=== PATIENT | female | born 1980 | race Caucasian/White ===

== ENCOUNTER 2016-06-29 15:39 | Emergency (ER) | payer OTHER ==
[~2016-06-29] VITALS: Ht 167.6 cm; Wt 108.9 kg
[2016-06-29 16:08] VITALS: BP 139/96
--- NOTE | 2016-06-29 18:11 | NUR ---
Pt taken to bed 7.
--- NOTE | 2016-06-29 18:30 | NUR ---
35/F presents to the ED for evaluation of vaginal bleeding x2 days, starting on Monday. Pt states "I have had heavy periods since I had my kids 2 years ago." Patient also reports having dizziness episodes and near syncopal episodes. Patient states "When she was drawing my blood I felt like I was going to pass out." Patient states LMP was Monday06/27/16. Pt states she has had heavy bleeding but states at this time "It stopped while I was outside." Pt states she got a referral for an OBGYN and states she has an appointment on 08/04/16. Pt states "My duty officer told me to come get checked out. They are worried about me." Pt states she gets drug tested weekly as part of her probation.
[2016-06-29] MEDS ORDERED: IBUPROFEN 800 MG TAB PO ONE (18:40)
--- NOTE | 2016-06-29 19:06 | NUR ---
PT LYING IN BED COMFORTABLY WITH SON AT BEDSIDE. PAIN SCALE REDUCED TO 5/10 AT THIS TIME AFTER IBUPROFEN ADMINISTRATION.NO ACUTE DISTRESS NOTED AT THIS TIME. SAFETY PRECAUTION ISTITUTED. NEEDS ATTENDED.WILL CONTINUE TO MONITOR PT.
--- NOTE | 2016-06-29 19:13 | NUR ---
TRANSFER OF CARE/REPORT GIVEN TO RN BRODY
--- NOTE | 2016-06-29 19:14 | NUR ---
RECEIVED REPORT FROM DAY NURSE YENNI THIBODEAUX AND NABEEL BENITEZ FOR TRANSFER OF CARE.
--- NOTE | 2016-06-29 19:30 | NUR ---
DR NEVAREZ AT BEDSIDE EVALUATING PATIENT.
[2016-06-29] MEDS ORDERED: KETOROLAC 60 MG/2 ML VIAL IM ONE (19:40)
[2016-06-29 20:18] VITALS: BP 101/74
--- NOTE | 2016-06-29 20:18 | NUR ---
Patient discharged with v/s stable. Written and verbal after care instructions given and explained. Patient alert, oriented and verbalized understanding of instructions. Ambulatory with steady gait. All questions addressed prior to discharge. ID band removed. Patient advised to follow up with PMD. Rx of TRAMADOL HYDROCHLORIDE given. Patient educated on indication of medication including possible reaction and side effects. Opportunity to ask questions provided and answered.
== END 2016-06-29 20:18 | disposition home or self-care (01) ==
LOC: MED 15:39
DX: N93.9 Abnormal uterine and vaginal bleeding, unspecified (principal); R19.7 Diarrhea, unspecified

== ENCOUNTER 2016-08-07 11:42 | Emergency (ER) | payer OTHER ==
[~2016-08-07] VITALS: Ht 167.6 cm; Wt 132.4 kg
[2016-08-07 11:52] VITALS: BP 134/90
--- NOTE | 2016-08-07 13:38 | NUR ---
Patient to bed 03.
--- NOTE | 2016-08-07 13:45 | NUR ---
PATIENT PRESENTS TO ED WITH SOB, ASTHMA EXACERBATION-FULL CLEAR SPEECH, NO ACCOSSORY MUSCLE NOTED . PT STATES HAVE BEEN COUGHING AND FEELS SOB . DENIES N/V/D; SKIN IS PINK/WARM/DRY; AAOX4 WITH EVEN AND STEADY GAIT; LUNGS CLEAR BL; HR EVEN AND REGULAR; PT DENIES ANY FEVER, CP, SOB, OR COUGH AT THIS TIME; PATIENT STATES PAIN OF 8/10 AT THIS TIME TO RIGHT ANTECUBITAL AREA; VSS; PATIENT POSITIONED FOR COMFORT; HOB ELEVATED; BEDRAILS UP X2; BED DOWN. ER MD MADE AWARE OF PT STATUS.
[2016-08-07] MEDS ORDERED: PROMETH/CODEINE 6.25-10MG/5ML 5 ML UDC PO ONE (14:25)
--- NOTE | 2016-08-07 14:42 | NUR ---
PT REFUSED PHENERGAN W CODEINE SHE WILL BE DRIVING HOME. NOTIFIED
--- NOTE | 2016-08-07 14:46 | NUR ---
Dr. Patel evaluating patient at bedside.
[2016-08-07 15:59] VITALS: BP 137/86
--- NOTE | 2016-08-07 15:59 | NUR ---
Patient discharged with v/s stable. Written and verbal after care instructions given and explained. Patient alert, oriented and verbalized understanding of instructions. Ambulatory with steady gait. All questions addressed prior to discharge. ID band removed. Patient advised to follow up with PMD. Rx of PHENERGAN W CODEINE given. Patient educated on indication of medication including possible reaction and side effects. Opportunity to ask questions provided and answered.
== END 2016-08-07 15:59 | disposition home or self-care (01) ==
LOC: MED 11:42
DX: B34.9 Viral infection, unspecified (principal); R03.0 Elevated blood-pressure reading, without diagnosis of hypertension
CPT/HCPCS: 99283

== ENCOUNTER 2016-08-20 19:30 | Emergency (ER) | payer SELFPAY ==
--- NOTE | 2016-08-20 19:43 | NUR ---
PATIENT LEFT WITHOUT BEING SEEN BY DR. CHEUNG. NO FURTHER CARE PROVIDED FOR PATIENT.
== END 2016-08-20 19:43 | disposition left against medical advice (07) ==
LOC: MED 19:30
DX: R50.9 Fever, unspecified (principal); R11.10 Vomiting, unspecified; Z53.21 Procedure and treatment not carried out due to patient leaving prior to being seen by health care provider

== ENCOUNTER 2016-08-24 10:17 | Emergency (ER) | payer OTHER ==
[~2016-08-24] VITALS: Ht 165.1 cm; Wt 129.0 kg
[2016-08-24 10:33] VITALS: BP 126/77
--- NOTE | 2016-08-24 13:00 | NUR ---
PT AMBULATED TO BED 5.
--- NOTE | 2016-08-24 13:10 | NUR ---
36F BIB SELF C/O BODY ACHES, COUGH, & SWOLLEN TONSILS X MONDAY. DENIES N/V/D; SKIN IS PINK/WARM/DRY; AAOX4 WITH EVEN AND STEADY GAIT; LUNGS CLEAR BL; HR EVEN AND REGULAR; PT DENIES ANY FEVER, CP OR SOB AT THIS TIME; PATIENT STATES PAIN OF 10/10 AT THIS TIME; VSS; PATIENT POSITIONED FOR COMFORT; HOB ELEVATED; BEDRAILS UP X2; BED DOWN. ER MD MADE AWARE OF PT STATUS.
[2016-08-24] MEDS ORDERED: BENZONATATE 100 MG CAPLF PO PRN (14:00)
[2016-08-24 16:10] VITALS: BP 120/69
--- NOTE | 2016-08-24 16:10 | NUR ---
Patient discharged with v/s stable. Written and verbal after care instructions given and explained. Patient alert, oriented and verbalized understanding of instructions. Ambulatory with steady gait. All questions addressed prior to discharge. ID band removed. Patient advised to follow up with PMD. Rx of MARY MICHELLE, MEDROL DOSEPAK given. Patient educated on indication of medication including possible reaction and side effects. Opportunity to ask questions provided and answered.
== END 2016-08-24 16:10 | disposition home or self-care (01) ==
LOC: MED 10:17
DX: B34.9 Viral infection, unspecified (principal); J02.9 Acute pharyngitis, unspecified; J45.909 Unspecified asthma, uncomplicated
CPT/HCPCS: 36415; 71020; 87081; 87804; 99285

== ENCOUNTER 2023-10-22 19:00 | Emergency (ER) | payer OTHER ==
[~2023-10-22] VITALS: Ht 165.1 cm; Wt 114.8 kg
[2023-10-22 19:12] VITALS: BP 140/83; PULSE 93; RESP 20; TEMP 97.8; O2SAT 99
[2023-10-22] MEDS ORDERED: CAPS1ADH5 TP (19:28)
[2023-10-22] MEDS ORDERED: IBUP-2213 PO (19:28)
== END 2023-10-22 19:47 | disposition home or self-care (01) ==
LOC: MED 19:00
DX: S39.012A Strain of muscle, fascia and tendon of lower back, initial encounter (principal); J45.909 Unspecified asthma, uncomplicated; Z79.1 Long term (current) use of non-steroidal anti-inflammatories (NSAID); Z79.899 Other long term (current) drug therapy; Z98.890 Other specified postprocedural states; V49.9XXA Car occupant (driver) (passenger) injured in unspecified traffic accident, initial encounter; Y93.89 Activity, other specified; Y92.410 Unspecified street and highway as the place of occurrence of the external cause; Y99.8 Other external cause status
CPT/HCPCS: 99282